=== PATIENT | female | born 1955 | race Caucasian/White ===

== ENCOUNTER → 2019-06-25 08:49 | Outpatient (CLI) | payer MEDICARE, OTHER, SELFPAY ==
[2019-06-25 10:57] LABS: Cholesterol 273 mg/dL (140-199); Glucose 96 mg/dL (80-110); HDL Cholesterol 63 mg/dL (40-60); LDL Cholesterol Calculated 180 mg/dL (<100); Triglycerides 152 mg/dL (35-150)
== END ==
PROVIDERS: PCP Family Medicine; Visit Provider Family Medicine
DX: E78.5 Hyperlipidemia, unspecified (principal); R73.09 Other abnormal glucose; Z13.1 Encounter for screening for diabetes mellitus
CPT/HCPCS: 36415; 80061; 82947

== ENCOUNTER → 2019-06-28 11:20 | Outpatient (CLI) | payer MEDICARE, OTHER, SELFPAY ==
--- NOTE | 2019-06-28 | DI.MG.S_ITS ---
BILATERAL DIGITAL SCREENING MAMMOGRAM 3D/2D WITH CAD: 06/28/2019 CLINICAL: Routine screening. Comparison is made to exams dated: 08/07/2015 mammogram, 10/16/2009 mammogram, and 10/11/2007 mammogram - [facility]. There are scattered fibroglandular elements in both breasts. Current study was also evaluated with a Computer Aided Detection (CAD) system. No significant masses, calcifications, or other findings are seen in either breast. There has been no significant interval change. IMPRESSION: NEGATIVE There is no mammographic evidence of malignancy. A 1 year screening mammogram is recommended. This exam was interpreted at Station ID: [id number]. NOTE: For mammograms, a report in lay terms will be sent to the patient. Approximately 15% of breast malignancies will not be visualized mammographically. In the management of a palpable breast mass, a negative mammogram must not discourage biopsy of a clinically suspicious lesion. Electronically Signed By: Dalia sorenson/devora:06/28/2019 12:33:13 letter sent: Normal Exam ACR BI-RADS Category 1: Negative [id number]
== END ==
PROVIDERS: PCP Family Medicine; Visit Provider Family Medicine
DX: Z12.31 Encounter for screening mammogram for malignant neoplasm of breast (principal)
CPT/HCPCS: 77063; 77067

== ENCOUNTER → 2019-07-02 08:28 | Outpatient (CLI) | payer MEDICARE, OTHER, SELFPAY | PROVIDERS: PCP Family Medicine; Visit Provider Family Medicine | DX: R10.13 Epigastric pain (principal) | CPT/HCPCS: 86677 ==

== ENCOUNTER → 2019-07-25 14:51 | Outpatient (CLI) | payer MEDICARE, OTHER, SELFPAY ==
--- NOTE | 2019-07-25 16:23 | PM.TREADMILL ---
Cardiac Stress Test Report Referral & Results Date Patient Seen: 07/25/19 Requesting provider: Merari Stevens Indication: Abnormal EKG Procedure Note: Today following both written and verbal informed consent, the patient was exercised according to a standard Walter protocol. The patient exercised for a total of 6 minutes 2 seconds achieving a maximum heart rate of 162. Patient's maximum systolic blood pressure was 208. This was an estimated 7.0 MET's. There are no ST-T segment changes Normal heart rate and blood pressure response to exercise Function aerobic impairment rates about 0 on the active scale Impression: No evidence of ischemia Average to slightly better than average exercise capacity Please note: Actual ECG tracings can be found in the PACS system.
== END ==
PROVIDERS: PCP Family Medicine; Visit Provider Family Medicine
DX: R94.31 Abnormal electrocardiogram [ECG] [EKG] (principal)
CPT/HCPCS: 93016; 93017; 93018

== ENCOUNTER → 2019-08-06 08:35 | Outpatient (CLI) | payer MEDICARE, OTHER, SELFPAY ==
--- NOTE | 2019-08-06 08:37 | DI.RAD.S_ITS ---
PROCEDURE: FL BARIUM SWALLOW INDICATIONS: dysphagia to solids COMPARISON: None. FINDINGS: Function: There is delayed esophageal clearance and decreased esophageal peristalsis. No elicited gastroesophageal reflux. Morphology: Air-contrast images demonstrate normal mucosal morphology. Single contrast views show no esophageal strictures, extrinsic mass effects, or diverticula. Limited images of the stomach demonstrate normal appearance. IMPRESSION: Esophageal dysmotility. Dictated by: Luc Rivera M.D. on 08/06/2019 at 9:35 Approved by: Luc Rivera M.D. on 08/06/2019 at 9:36
== END ==
PROVIDERS: PCP Family Medicine; Visit Provider Surgery
DX: R13.10 Dysphagia, unspecified (principal); K22.4 Dyskinesia of esophagus
CPT/HCPCS: 74220

== ENCOUNTER → 2019-08-13 15:22 | Outpatient (CLI) | payer MEDICARE, OTHER, SELFPAY ==
--- NOTE | 2019-08-13 15:24 | DI.MRI.S_ITS ---
PROCEDURE: MR HEAD/BRAIN WO CON INDICATIONS: head tremor TECHNIQUE: Noncontrast axial T1 spin echo, axial T2 fast spin echo, sagittal and axial FLAIR, coronal T2 fast spin echo, axial gradient echo, axial diffusion and ADC through the brain. COMPARISON: None. FINDINGS: Image quality: Excellent. CSF Spaces: Basal cisterns are patent. No extra-axial fluid collections. Ventricles are normal in size and shape. Brain: No intracranial masses or hemorrhage. Love/white matter interface is normal. Brainstem appears normal. Diffusion-weighted images demonstrate no acute ischemic insult. No chronic ischemic insults. Normal intravascular flow voids are present. Skull and face: Calvarium has normal marrow signal. Orbits appear normal. Sinuses: Sinuses and mastoids are clear. IMPRESSION: Normal for age, source of tremor not identified. Dictated by: Marquez Casanova M.D. on 08/13/2019 at 16:16 Approved by: Marquez Casanova M.D. on 08/13/2019 at 16:17
== END ==
PROVIDERS: PCP Family Medicine; Visit Provider Family Medicine
DX: R25.1 Tremor, unspecified (principal)
CPT/HCPCS: 70551

== ENCOUNTER 2019-08-20 14:40 | Day surgery (SDC) | payer MEDICARE, OTHER, SELFPAY ==
[2019-08-20] VITALS (11 sets, daily range): BP systolic 100–138; BP diastolic 63–76; PULSE 62–83; RESP 8–15; TEMP 35.9–36.2; O2SAT 93–100; BMI 28.8
--- NOTE | 2019-08-20 | PATH_ITS ---
[facility] Accession Number: [id number] . 01 Material submitted: . PART A: duodenum - DUODENUM BIOPSY PART B: gastrointestinal site - GASTRIC ANTRUM BIOPSY PART C: gastrointestinal site - GASTRIC CARDIA BIOPSY PART D: esophagus - DISTAL ESOPHAGUS BIOPSY AT 34CM PART E: colon - RANDOM DESCENDING COLON BIOPSIES AT 45CM . 01 Clinical history: . SCREENING COLONOSCOPY/EGD . 02 Diagnosis: A. Duodenum, Biopsy: Duodenal mucosa with patchy gastric surface foveolar metaplasia. Negative for intraepithelial lymphocytosis or villous blunting. Negative for dysplasia and malignancy. . B. Stomach, Antrum, Biopsy: Antral mucosa with no diagnostic abnormality. No evidence of Helicobacter on H/E stain. Negative for intestinal metaplasia. Negative for dysplasia and malignancy. . C. Stomach, Cardia, Biopsy: Oxyntic mucosa with no diagnostic abnormality. No evidence of Helicobacter on H/E stain. Negative for intestinal metaplasia. Negative for dysplasia and malignancy. . D. Distal Esophagus, 34 cm, Biopsy: Squamous and columnar mucosa with no diagnostic abnormality. Negative for intestinal metaplasia. Negative for dysplasia and malignancy. . E. Descending Colon, Random Biopsies at 45 cm: Colonic mucosa with no diagnostic abnormality. Negative for active chronic and microscopic colitis. Negative for dysplasia and malignancy. [facility] 08/21/2019 1443 Local . 02 Electronically signed: . Brandie Mccray MD, Pathologist NPI- [id number] . 01 Gross description: . Part A: DUODENUM BIOPSY: Received in formalin are 2 fragment(s) of freire, soft tissue measuring 0.1 x 0.1 x 0.1 cm in aggregate submitted entirely in 1 cassette(s) Part B: GASTRIC ANTRUM BIOPSY: Received in formalin is 1 fragment(s) of freire, soft tissue measuring 0.2 x 0.1 x 0.1 cm submitted entirely in 1 cassette(s) Part C: GASTRIC CARDIA BIOPSY: Received in formalin is 1 fragment(s) of freire, soft tissue measuring 0.2 x 0.2 x 0.2 cm submitted entirely in 1 cassette(s) Part D: DISTAL ESOPHAGUS BIOPSY AT 34CM: Received in formalin are 2 fragment(s) of freire, soft tissue measuring 0.1 x 0.1 x 0.1 cm to 0.2 x 0.1 x 0.1 cm submitted entirely in 1 cassette(s) Part E: RANDOM DESCENDING COLON BIOPSIES AT 45CM: Received in formalin are 2 fragment(s) of freire, soft tissue measuring 0.1 x 0.1 x 0.1 cm to 0.4 x 0.2 x 0.1 cm submitted entirely in 1 cassette(s) /[facility] 08/21/2019 0152 Local . 02 Pathologist provided ICD-10: Z12.11 . 02 CPT . 707246, [id number], [id number], [id number], [id number] Performed at: 01 [facility] [address] [id number] MD Joseph Kennedy MD Phone: [phone] Performed at: 02 [facility] [address] [place], [place] [id number] MD Brandie Mccray MD Phone: [phone]
[2019-08-20] MEDS: SODIUM CHLORIDE 0.9% 1,000 ML 200 ML IV (15:18)
--- NOTE | 2019-08-20 15:48 | PM.PREOP ---
Pre-operative Note Interval Note History & Physical reviewed/Exam performed by Physician: Yes Changes to H&P: No ASA Class (for procedural sedation): III
[2019-08-20] MEDS: MIDAZOLAM 5 MG/5 ML VIAL IV (16:18)
[2019-08-20] MEDS: fentaNYL 250 MCG/5 ML INJ IV (16:32)
--- NOTE | 2019-08-20 16:52 | PM.OP.ENDO ---
Operative Date/Time/Diagnoses Date of procedure: 08/20/19 Time of procedure: 16:52 Pre-op diagnosis: Abdominal pain, chronic bloating and constipation, dysphagia Post-op diagnosis: other (Gastritis, hiatal hernia, esophagitis) Procedure & Clinicians Study performed: EGD with cold forceps biopsies of the duodenum, stomach, distal esophagus and gastric cardia; and colonoscopy with random mucosal biopsies in the descending colon Same procedure as scheduled: Yes Indications: Patient with dysphagia, GERD, bloating, constipation Surgeon: Aneta Muñoz Procedure Notes SCOAP/Timeout: Performed Procedure in detail: The patient was brought to the room and placed in left lateral decubitus position with all bony prominences padded. A time-out was performed and then the patient was given procedural sedation starting with 3 mg of Versed and 100 mcg of fentanyl. A bite block was placed to protect the patient's lips, teeth, and tongue. Vitals were monitored throughout the procedure and remained stable. Once adequately sedated the procedure was begun. The gastroscope was placed through the bite block and over the tongue. It was advanced into the esophagus without any difficulty, and a tubular view of the esophagus was maintained. The scope was advanced down the esophagus and into the stomach in the usual fashion. I gently popped through the pylorus and into the duodenal bulb. I then turned the scope into the 2nd portion of the duodenum. The duodenal mucosa looked normal. In the bulb there was some polypoid mucosa a which I took 2 biopsies. I then came back out into the stomach and took biopsies of the antrum which appeared moderately inflamed. I then retroflexed and saw some abnormal appearing hypercellular mucosa in the gastric cardia. This was biopsied. The patient was noted to have a Hill grade 4 hiatal hernia. I then pulled the scope back into the distal esophagus and took biopsies at the GE junction. There was an abnormal appearing Z-line with multiple small mucosal breaks at 32 cm with 5mm of gastric appearing mucosa coming into the esophagus. The crural pinch was at approximately 35 cm. The scope was then pulled back out through the esophagus. Esophageal spasms were seen as I pulled the endoscope back. The scope was removed through the bite block. The patient tolerated the procedure well. Attention was then turned to the colonoscopy procedure. A rectal exam was performed revealing no abnormalities. The colonoscope was then introduced to the rectum and advanced to the cecum in the usual fashion. The entire colon was very patulous and tortuous. Beyond the splenic flexure there were very few haustral markings and the colon was so large and patulous that I could not get it to fully distend. The cecum was difficult to identify due to lack of markings, but we did see what appeared to be an appendiceal orifice, the IC valve, and the end of the colon. The scope was then retracted while rotating side to side and examining each mucosal fold. Cold forceps random biopsies were taken of the colonic mucosa. At the conclusion procedure retroflexion was performed and small grade 1-2 internal hemorrhoids without stigmata of bleeding were seen. The scope was then withdrawn from the rectum the procedure was concluded. The patient tolerated the procedure well was transferred to the PACU in stable condition. Scope withdrawal time: 14 Sedation minutes: 57 Findings: gastritis, hiatal hernia and internal hemorrhoids Specimen(s): other (Cold forceps biopsies of duodenum, gastric antrum, gastric cardia, distal esophagus, random biopsies of the colon) Complications: none Impression: Very tortuous and patulous colon, esophagitis in the distal 1/3 of the esophagus, abnormal hyper cellularity in the gastric cardia, gastritis Post-procedure Recommendations: Other recommendation (Will consider CT colonography to better evaluate the colon, will see the patient back after biopsy results are returned, for possible manometry and increase acid blocking medication) Plan for aftercare: As above Follow up: weeks (2) Disposition: PACU
== END 2019-08-20 17:47 | disposition home or self-care (01) ==
PROVIDERS: Family Provider Family Medicine; PCP Family Medicine; Visit Provider Surgery
PROC: 0DJ08ZZ Inspection of Upper Intestinal Tract, Via Natural or Artificial Opening Endoscopic (ICD-10-PCS; CPT 43235; principal; 2019-08-20 16:00)
PROC: 0DJD8ZZ Inspection of Lower Intestinal Tract, Via Natural or Artificial Opening Endoscopic (ICD-10-PCS; CPT 45378; 2019-08-20 16:00)
DX: K29.70 Gastritis, unspecified, without bleeding (principal); R14.0 Abdominal distension (gaseous); K59.00 Constipation, unspecified; R13.10 Dysphagia, unspecified; K44.9 Diaphragmatic hernia without obstruction or gangrene; K20.9 Esophagitis, unspecified; K64.0 First degree hemorrhoids
CPT/HCPCS: 45380; 43239; 99152; 99153; J2250; J3010

== ENCOUNTER → 2020-03-13 09:20 | Outpatient (CLI) | payer MEDICARE, SELFPAY ==
[2020-03-13 10:57] LABS: Calcium 9.7 mg/dL (8.4-10.2)
[2020-03-13 11:12] LABS: Vitamin D 25 Hydroxy (D3) 69.7 ng/mL (30.0-100.0)
[2020-03-13 11:20] LABS: Free T3, Triiodothyronine Free 2.89 pg/mL (2.77-5.27); Free T4, Direct Thyroxine 1.11 ng/dL (0.78-2.19)
[2020-03-13 11:34] LABS: Thyroid Stimulating Hormone 3.53 uIU/mL (0.47-4.68)
[2020-03-14 07:08] LABS: Thyroid Peroxidase Antibodies <9 IU/mL (0-34)
[2020-03-20 04:45] LABS: Triiodothyronine T3 Reverse 17.1 ng/dL (9.2-24.1)
== END ==
PROVIDERS: Family Provider Family Medicine; PCP Family Medicine; Referring Provider Family Medicine; Visit Provider Family Medicine
DX: R00.2 Palpitations (principal); R53.83 Other fatigue
CPT/HCPCS: 36415; 82306; 82310; 84439; 84443; 84481; 84482; 86376

== ENCOUNTER → 2020-04-09 09:22 | Outpatient (CLI) | payer MEDICARE, SELFPAY ==
--- NOTE | 2020-05-05 07:44 | P.HOLT.S_ITS ---
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 Referral & Results Date Patient Seen: 04/09/20 Requesting provider: Merari Stevens Indication: Palpitations Duration of monitoring (days): 14 Diary information: There are no patient triggered events or patient diary entries to correlate with any potential dysrhythmia Data: Minimum heart rate identified was 49 beats per minute at 03:22 on 04/17/2020 Maximum heart rate was 143 beats per minute at 14:59 on 04/18/2020 Less than 1% of identified beats rather ventricular supraventricular ectopic in origin Impression: Normal 14 day threat monitoring analyst No etiology for sense of palpitations identified on this study
== END ==
PROVIDERS: Family Provider Family Medicine; PCP Family Medicine; Referring Provider Family Medicine; Visit Provider Family Medicine
DX: R00.2 Palpitations (principal)
CPT/HCPCS: 0296T; 0298T

== ENCOUNTER → 2020-06-29 15:21 | Outpatient (CLI) | payer MEDICARE, SELFPAY ==
[2020-06-29 16:49] LABS: Add Manual Diff / Slide Review NO; Basophils Absolute Auto 0 /uL (0-100); Basophils Percent Auto 0.4 % (0-2); Eosinophils Absolute Auto 100 /uL (0-450); Eosinophils Percent Auto 1.9 % (2-4); Hemoglobin 12.3 g/dL (12.0-16.0); Lymphocytes Absolute Auto 1800 /uL (1100-4500); Lymphocytes Percent Auto 41.6 % (25-40); Mean Corpuscular HGB Conc 33.2 % (30-36); Mean Corpuscular Hemoglobin 31.3 PG (26-34); Mean Corpuscular Volume 94.4 fL (80-100); Monocytes Absolute Auto 500 /uL (0-900); Monocytes Percent Auto 10.5 % (3-14); Neutrophils Absolute Auto 2000 /uL (1500-7000); Neutrophils Percent Auto 45.6 % (50-75); Platelet Count 225 X10^3/uL (150-400); Red Blood Cell Count 3.92 X10^6/uL (4.0-5.2); Red Cell Distribution Width 13.5 % (11.6-14.8); White Blood Cell Count 4.4 X10^3/uL (4.5-11.0)
[2020-06-29 16:56] LABS: Hemoglobin A1C% w Est Avg Glu 5.2 % (4.0-6.0)
[2020-06-29 17:31] LABS: Alanine Aminotransferase 16 IU/L (<35); Albumin 4.3 g/dL (3.5-5.0); Albumin Globulin Ratio 1.3 (1.0-2.8); Alkaline Phosphatase 94 U/L (38-126); Aspartate Aminotransferase 26 IU/L (14-36); Bilirubin Total 0.5 mg/dL (0.2-1.3); Blood Urea Nitrogen 14 mg/dL (7-17); Calcium 9.2 mg/dL (8.4-10.2); Carbon Dioxide 29 mmol/L (22-32); Chloride 103 mmol/L (98-107); Estimated Glomerular Filt Rate > 60.0 mL/min (>60); Globulin 3.2 g/dL (1.7-4.1); Glucose 88 mg/dL (80-110); HDL Cholesterol 65 mg/dL (40-60); HEMOLYSIS < 15 (0-50); Magnesium 2.3 mg/dL (1.6-2.3); Phosphorous 4.3 mg/dL (2.8-4.1); Potassium 4.2 mmol/L (3.4-5.1); Sodium 138 mmol/L (137-145); Total Protein 7.5 g/dL (6.3-8.2); Triglycerides 106 mg/dL (35-150)
[2020-06-29 17:38] LABS: Cholesterol 505 mg/dL (140-199); LDL Cholesterol Calculated 419 mg/dL (<100)
[2020-06-29 18:19] LABS: Vitamin B12 594 pg/mL (239-931)
[2020-07-04 09:19] LABS: Progesterone, Total 0.25 ng/mL
[2020-07-04 09:35] LABS: Testosterone 12.2 ng/dL (5.71-77.0)
== END ==
PROVIDERS: Family Provider Family Medicine; PCP Family Medicine; Referring Provider Family Medicine; Visit Provider Family Medicine
DX: Z13.220 Encounter for screening for lipoid disorders (principal); R53.83 Other fatigue; G62.9 Polyneuropathy, unspecified; R25.2 Cramp and spasm
CPT/HCPCS: 36415; 80053; 80061; 82607; 82670; 83036; 83735; 84100; 84144; 84403; 85025

== ENCOUNTER → 2020-07-06 11:55 | Outpatient (CLI) | payer MEDICARE, SELFPAY ==
[2020-07-06 12:54] LABS: HDL Cholesterol 64 mg/dL (40-60); Triglycerides 111 mg/dL (35-150)
[2020-07-06 13:02] LABS: Cholesterol 492 mg/dL (140-199); LDL Cholesterol Calculated 406 mg/dL (<100)
== END ==
PROVIDERS: Family Provider Family Medicine; PCP Family Medicine; Referring Provider Family Medicine; Visit Provider Family Medicine
DX: E78.5 Hyperlipidemia, unspecified (principal)
CPT/HCPCS: 80061

== ENCOUNTER → 2025-04-17 08:24 | Outpatient (CLI) | payer MEDICARE, OTHER, SELFPAY ==
[2025-04-17 10:22] LABS: Alanine Aminotransferase 31 IU/L (<35); Albumin 4.3 g/dL (3.5-5.0); Albumin Globulin Ratio 1.5 (1.0-2.8); Alkaline Phosphatase 96 U/L (38-126); Blood Urea Nitrogen 10 mg/dL (7-17); Calcium 9.1 mg/dL (8.4-10.2); Carbon Dioxide 27 mmol/L (22-32); Chloride 104 mmol/L (98-107); Estimated Glomerular Filt Rate > 60 mL/min (>60); Globulin 2.9 g/dL (1.7-4.1); Glucose 91 mg/dL (70-99); HEMOLYSIS < 15 (0-50); Potassium 3.9 mmol/L (3.4-5.1); Sodium 137 mmol/L (137-145); Total Protein 7.2 g/dL (6.3-8.2); Triglycerides 175 mg/dL (35-150)
[2025-04-17 10:23] LABS: Cholesterol 307 mg/dL (140-199); HDL Cholesterol 63 mg/dL (40-60)
[2025-04-17 10:44] LABS: Add Manual Diff / Slide Review NO; Hematocrit 38.9 % (36-46); Hemoglobin 13.2 g/dL (12.0-16.0); Lymphocytes Absolute Auto 2100 /uL (1100-4500); Mean Corpuscular HGB Conc 33.9 % (30-36); Mean Corpuscular Hemoglobin 30.6 PG (26-34); Mean Corpuscular Volume 90.3 fL (80-100); Platelet Count 296 X10^3/uL (150-400)
== END ==
PROVIDERS: PCP Family Medicine; Referring Provider Family Medicine; Visit Provider Family Medicine
DX: Z00.00 Encounter for general adult medical examination without abnormal findings (principal); E78.5 Hyperlipidemia, unspecified; K21.9 Gastro-esophageal reflux disease without esophagitis; G24.3 Spasmodic torticollis
CPT/HCPCS: 36415; 80053; 80061; 85025